=== PATIENT | female | born 1935 | race Caucasian/White ===

== ENCOUNTER 2016-11-16 11:58 | Outpatient (RCR) ==
[2015-04-03 12:15] VITALS: BMI 24.7
--- NOTE | 2016-11-16 16:29 | RS.OPPTDN ---
Subjective Date of Note: 11/16/16 Visit #: 7 Date of Evaluation: 08/13/16 Payer Source: MEDICARE Treatment Diagnosis: Right hip weakness Current Subjective/complaints:: Patient says she will be returning to water aerobics 4 times per week and has been performing HEP routinely. She says her MD says "just do what she can." Not to "overdo" anything. She questions whether she should have done more strengthening at first instead of ambulating. *Precautions: Right gluteus medius tendon repair 06/17/16 Pain Assessment - Pain Description Pain Location: Right hip Current Pain Intensity: Says only slight at the R glut Interventions - Exercise/Activities/Manual Therapy Exercises/Activities: Exercise with reassessment and education 45mins. QS, isometric hip add with ball, and isometric hip flexion with manual resistance. Alternate hip flexion with 3# each ankle, [id number]. SLR [id number] each side. Red theraband for short range right hip abd in hook-lying, 2s/10reps. In standing, hip abduction 2s/10reps each. Mini-squats, marching, and toe-ups, 10reps each. Short range hip extension, 2s/5reps each side. Step ups and lateral step ups on low stepper board, [id number] each. Omitted leg press as she says it really bothered her last session. High march side-stepping at handrail. Stationary bike x5mins(not included in total direct). Gait training [id number]. Works with cane in department, ambulating on flat planes, turns, and up and over low stepper board with MEDIA MANAGER. Treadmill @ 1.0-1.4 mph at level 2 incline x 7 mins frequently altering speed and time. Manual Therapy: NA HOME EXERCISE PROGRAM: supine hip abd/add, pillow squeeze (hip adduction isometrics), hip flexion in sitting. In standing, hip abd, marching, mini-squats , and toe-ups. Bridging. Alternate hip flexion. Standing short range hip extension. High step side-step marching at kitchen counter or in pool. - Objective Findings Observations,measurements,etc.: LE Functional Scale or 69%impairment compared to or 80% - Charges Total Direct Minutes: 45 Total Treatment Time: 45 Procedures billed for this date of service:: ex3 Assessment: Patient has made some progress with strengthening and improved functional tasks at home. She is steady with ambulation and uses RW in the community, but independent at home. She has been ascending stairs in home with one handrail with no difficulty and very little daily pain (more less she describes as soreness). Patient Education: Education of diagnosis, Body/Joint mechanics, Home Exercise Program, Home Safety, Activity Modification, Education of Plan of Care Patient demonstrates compliance with HEP?: Yes Short Term Goals Goal #1: Right hip abduction 4/5. Goal to be met by: 10/26/16 Progress towards Goal:: Met Goal #2: Trunk strength /5. Goal to be met by: 10/26/16 Progress towards Goal:: Met Goal #3: Patient amb with straight cane in her home for household distances. Goal to be met by: 10/26/16 Progress towards Goal:: Met Comments:: independently Sales Coordinator Goals Goal #1: Score on LE functional scale less than 19% impairment. Goal to be met by: 11/16/16 Progress towards goal: Progressing Goal #2: Patient able to perform all ADL's without limitation. Goal to be met by: 11/16/16 Progress towards goal: Progressing Goal #3: Patient is independent with SC in community. Goal to be met by: 11/16/16 Progress towards goal: Progressing Goal #4: Patient will return to pool fitness program without limitation. Goal to be met by: 11/16/16 Progress towards goal: Progressing Comments: Returning this week (4x per week) Plan PLAN OF CARE EXPIRES ON:: 11/16/16 ORDER # VISITS AND/OR THROUGH DATE: 11/16/16 PLAN: Plan for Discharge
--- NOTE | 2016-11-19 13:15 | RS.OPPTDC ---
Date of Discharge: 11/16/16 Date of Evaluation: 08/13/16 Number of Visits: 9 Treatment Diagnosis: Right hip weakness Current Complaints/Gains: Ms. Brady reports being please with her progress with therapy. She is performing HEP and progressing with exercises in pool therapy. She feels that the Laser treatment has help with decreasing her pain. She is motivated to continue with her HEP following D/C from therapy. Pain Assessment - Pain Description Pain Location: Right hip Current Pain Intensity: Says only slight at the R glut Functional Outcome Measure LE Functional Scale: 25 - G Codes & Severity Modifier G Codes & Modifier: Mobility, Walking & Moving Around. Eval - CL. Goal - CI. DC Status - CL Source of G Code score: LE Functional Scale Gait - Gait Pattern Gait Comments: Gait is now steady with SC and she has good gt speed. Interventions - Exercise/Activities/Manual Therapy Exercises/Activities: NA Manual Therapy: NA HOME EXERCISE PROGRAM: NA - Charges Total Direct Minutes: NA Total Treatment Time: NA Procedures billed for this date of service:: NA Assessment Assessment: Patient has made excellent progress with skilled PT intervention. She has met all STGs and LTGs are progressing and she is able to continue with her HEP to achieve further goals independently. Short Term Goals Goal #1: Right hip abduction 4/5. Goal to be met by: 10/26/16 Progress towards Goal:: Met Goal #2: Trunk strength 4/5. Goal to be met by: 10/26/16 Progress towards Goal:: Met Goal #3: Patient amb with straight cane in her home for household distances. Goal to be met by: 10/26/16 Progress towards Goal:: Met Intermediate Goals Goal #1: Score on LE functional scale less than 19% impairment. Goal to be met by: 11/16/16 Progress towards goal: Progressing Goal #2: Patient able to perform all ADL's without limitation. Goal to be met by: 11/16/16 Progress towards goal: Progressing Goal #3: Patient is independent with SC in community. Goal to be met by: 11/16/16 Progress towards goal: Progressing Goal #4: Patient will return to pool fitness program without limitation. Goal to be met by: 11/16/16 Progress towards goal: Progressing Plan Reason for Discharge:: Self-Discharge
== END 2016-12-08 ==
PROVIDERS: ATTEND Orthopaedic Surgery
DX: M25.551 Pain in right hip (principal)

== ENCOUNTER 2016-11-30 07:24 | Outpatient (CLI) ==
[2015-04-03 12:15] VITALS: BMI 24.7
--- NOTE | 2016-11-30 09:32 | MAMMO ---
EXAM: Digital bilateral diagnostic mammogram and left breast ultrasound HISTORY: Previous complex cyst in the left breast COMPARISON: Mammogram 05/15/2015 and 05/07/2015 with ultrasound of the left breast 02/12/2016 FINDINGS: MLO and CC views of the breasts were performed digitally and demonstrate scattered fibrog landular breast density (25 - 50%). There are persistent vascular calcifications. The peripheral ax illary, right breast well marginated nodule is unchanged from prior exam. The nodular densities in the left breast centrally are unchanged in size in appearance measuring 3.8 cm from the nipple poste riorly. This was present on prior evaluation, but is better marginated on today's exam. Same day ultrasound demonstrates an anechoic left breast cyst with a anechoic cyst at 12 o'clock michelle suring 0.6 x 0.9 x 0.7 cm. Additional anechoic cyst at 12 o'clock measures 0.4 x 0.5 x 0.5 cm. The third anechoic lesion measures 0.5 x 0.8 x 0.6 cm. IMPRESSION: Nodular densities in the left breast which correlate on the ultrasound with anechoic cy sts. RECOMMENDATION: Return to annual screening mammogram BIRADS category II: Benign findings
== END 2016-11-30 07:25 | disposition home or self-care (01) ==
LOC: RAD 07:24
PROVIDERS: ATTEND Family Medicine
DX: R92.2 Inconclusive mammogram (principal)

== ENCOUNTER 2017-06-15 14:01 | Outpatient (CLI) ==
[2015-04-03 12:15] VITALS: BMI 24.7
--- NOTE | 2017-06-15 14:33 | DI ---
EXAM: Single view of the pelvis and two views of bilateral hips. History: Bilateral hip pain. Comparison: Right hip radiograph 06/04/2015, pelvic radiograph 04/03/2015 Findings: No acute fracture or dislocation. Bilateral hip joint spaces are preserved. Postsurgica l changes of the lumbosacral spine again noted. Stable degenerative changes of the pubic symphysis. Impression: 1. No acute osseous abnormality. 2. No significant degenerative changes of the bilateral hip joints.
== END 2017-06-15 14:02 | disposition home or self-care (01) ==
LOC: RAD 14:01
PROVIDERS: ATTEND Family Medicine
DX: M25.552 Pain in left hip (principal); M25.551 Pain in right hip

== ENCOUNTER 2017-11-05 11:00 | Outpatient (RCR) ==
[2017-09-06 16:16] VITALS: BMI 25.9
--- NOTE | 2017-10-27 14:56 | RS.OPPTEV2 ---
Date of Note: 10/26/17 Visit #: 1 Date of Evaluation: 10/26/17 Payer Source: MEDICARE Date of Onset/Injury/Change in Status: 09/02/17 Surgery Performed?: Yes Procedure Performed: lumbar laminectomy with fusion Date of Procedure: 09/02/17 Treatment Diagnosis: lumbar spondylosis, after care following lumbar white History of Condition/Mechanism of Injury:: pt with diagnosis of lumbar spondylosis. pt underwent lumbar laminectomy with fusion. Prior Level of Function.....Patient was independent with: ADL's, Self Care, Ambulation/Mobility, Community Integration/Access Functional Limitations: ADL's, Reaching, Pushing, Pulling, Lifting, Carrying, Standing, Bending, Squatting, Ambulation, Community Access/Integration Current Subjective/complaints:: pt states she went back to MD for 6 week post op appointment and MD told her she no longer has restrictions for lifting or wearing brace. pt states she plans to return to going to pool for exercise in November. *Precautions: try to avoid bending, lifting and twisting to avoid strain to lumbar spine. Medical History Medical History: Hypertension, Arthritis Medical History Comments:: Back surgery May 2012, Apr 01 2015 torn hip tendon , May 2013 hip tendon repair, Spinal stenosis, DDD, [place], Lum, White, Osteoporosis , HTN, OA Surgical History: Lumbar Spine, Other Surgical History Comments:: lumbar white with lumbar fusion, R hip tendon repair 2016 Smoking Status: Never smoker Hx Home Medications: carbamazepine, clobetasol, Cranberry concentrate, enalapril , nitrofurantoin, pramipexole, premarin, prolia, simvastatin, sudafed, triamcinolone, vitamin D Patient's Goals: to be able to walk without rwx or cane. Pain Assessment - Pain Description Pain Location: lumbar spine Pain Description: stinging Current Pain Intensity: 0-1 Functional Outcome Measure Oswestry LBP: 16 (32%) - G Codes & Severity Modifier G Codes & Modifier: mobility current CJ. mobility goal CI Source of G Code score: oswestry scale as well as functional assessment Observation - Observation Inspection: min non pitting edema B LE Posture: Forward Head, Rounded Shoulders, Increased Thoracic Kyphosis Handedness: Right Gait - Gait Pattern General Gait Pattern Observation: Crouched Gait Gait Comments: pt amb with flexed posture with 3 wheeled rwx independently with no LOB General Range of Motion: WFL's Muscle Strength: BUE shld flex 4-/5, elbow flex/ext 4/5, BLE hip flex 4-/5, knee 4/5, ankle DF/PF 4/5 - ROM Lumbar Flexion: Hand reach to patellae Sidebending to Left: Reach to Mid-thigh Sidebending to Right: Reach to Mid-thigh Lumbar Spine ROM Limitations: Soft Tissue Tightness Palpation Palpation Findings: Muscle Guarding (lumbar paraspinals ) Sensation - Sensation Right Upper Extremity: Intact/Normal Left Upper Extremity: Intact/Normal Right Lower Extremity: Impaired Left Lower Extremity: Impaired (n/t B toes) Balance - Sitting Balance Static Sitting Balance: Good Dynamic Sitting Balance: Good - Standing Balance Static Standing Balance: Good Dynamic Standing Balance: Fair - Comments Balance Assessment Comments: balance master limits of stability score 26% Interventions - Exercise/Activities/Manual Therapy Exercises/Activities: NA Manual Therapy: NA HOME EXERCISE PROGRAM: pt given written HEP including hamstring stretch, isometric hip flex, - Charges Timed Code Treatment Minutes: 58 Total Treatment Time: 65 Procedures billed for this date of service:: eval med Assessment Assessment: pt presents with decreased strength, balance as well as pain in lumbar spine s/p lumbar laminectomy with fusion . Feel pt would benefit from skilled PT for therex for LE strengthening, core strengthening, balance activities and gait training to progress from rwx to cane. Patient Education: Home Exercise Program, Education of Plan of Care Rehab Potential: Good Short Term Goals Goal #1: pt with improved strength BLE 4 to 4+/5 Goal to be met by: 11/09/17 Goal #2: pt amb in dept with cane with no loss of balance with supervision Goal to be met by: 11/09/17 Goal #3: pt report no pain with activity Goal to be met by: 11/09/17 Toeing Stockings Goals Goal #1: Oswestry score improved to <25% impaired Goal to be met by: 11/25/17 Goal #2: improved balance as noted by balance master limits of stability improved Goal to be met by: 11/25/17 Goal #3: pt amb independently in community with cane Goal to be met by: 11/25/17 Goal #4: Patient will return to pool fitness program without limitation. Goal to be met by: 11/25/17 Plan - Treatment to be Provided Procedures: Therapeutic Exercises, Therapeutic Activity, Gait Training, Manual Therapy, Patient Education Modalities: Electrical Stimulation, Cryotherapy, Hot Packs - Treatment Plan Frequency: 2 X week Duration: 4 weeks ORDER # VISITS AND/OR THROUGH DATE: 11/25/17 - Treatment Code (1) Lumbar spondylosis Code(s): M47.816 - SPONDYLOSIS W/O MYELOPATHY OR RADICULOPATHY, LUMBAR REGION (2) Other specified postprocedural states Code(s): Z98.89 - OTHER SPECIFIED POSTPROCEDURAL STATES * DO NOT USE * (3) Gait abnormality Code(s): R26.9 - UNSPECIFIED ABNORMALITIES OF GAIT AND MOBILITY
--- NOTE | 2017-10-28 13:34 | RS.OPPTDN ---
Subjective Date of Note: 10/28/17 Visit #: 2 Date of Evaluation: 10/26/17 Payer Source: MEDICARE Treatment Diagnosis: lumbar spondylosis, after care following lumbar guthrie Current Subjective/complaints:: Patient reports she is working on HEP as instructed. *Precautions: try to avoid bending, lifting and twisting to avoid strain to lumbar spine. Pain Assessment - Pain Description Pain Location: lowback Current Pain Intensity: mild Interventions - Exercise/Activities/Manual Therapy Exercises/Activities: Assisted stretching of hamstrings, SKTC, and lower trunk rotation. Isometric hip add with ball, isometric hip flexion. Alt hip flexion with 1 1/2# to each ankle. Red theraband for hip abd in hook-lying. Wand for overhead shoulder flexion with ball squeeze beetween knees for core strengthening. In standing at handrail, forward and side lunges. Active trunk extension. Als hip extension. Wall slides with large therapy ball. Scapular retraction. Total minutes of Exercise: 40mins Manual Therapy: NA HOME EXERCISE PROGRAM: pt given written HEP including hamstring stretch, isometric hip flex, - Charges Timed Code Treatment Minutes: 40mins Total Treatment Time: 45mins Procedures billed for this date of service:: EX3 Assessment: Patient motivated to progress with exercise to improve her functional activity level. Patient Education: Education of diagnosis, Body/Joint mechanics, Home Exercise Program, Home Safety, Activity Modification Patient demonstrates compliance with HEP?: Yes Short Term Goals Goal #1: pt with improved strength BLE 4 to 4+/5 Goal to be met by: 11/09/17 Goal #2: pt amb in dept with cane with no loss of balance with supervision Goal to be met by: 11/09/17 Goal #3: pt report no pain with activity Goal to be met by: 11/09/17 Decorating Equipment Setter Goals Goal #1: Oswestry score improved to <25% impaired Goal to be met by: 11/25/17 Goal #2: improved balance as noted by balance master limits of stability improved Goal to be met by: 11/25/17 Goal #3: pt amb independently in community with cane Goal to be met by: 11/25/17 Goal #4: Patient will return to pool fitness program without limitation. Goal to be met by: 11/25/17 Plan PLAN OF CARE EXPIRES ON:: 11/25/17 ORDER # VISITS AND/OR THROUGH DATE: 11/25/17 PLAN: Progress exercise to increase patients functional activity level.
--- NOTE | 2017-11-03 13:45 | RS.OPPTDN ---
Subjective Date of Note: 11/03/17 Visit #: 3 Date of Evaluation: 10/26/17 Payer Source: MEDICARE Treatment Diagnosis: lumbar spondylosis, after care following lumbar guth[place] Current Subjective/complaints:: Patient reports she is working on HEP. States she was up more over the holidays. She reports she noticed increased soreness but feels like she was able to do light activities fairly well. *Precautions: try to avoid bending, lifting and twisting to avoid strain to lumbar spine. Pain Assessment - Pain Description Pain Location: Lowback Pain Description: Aching Current Pain Intensity: Mild Interventions - Exercise/Activities/Manual Therapy Exercises/Activities: Assisted stretching of bilateral hamstrings, SKTC, and LTR. Isometric hip add with ball, isometric hip flexion. Alt hip flexion increased to 3# to each ankle. Overhead shoulder flexion with 3# wand and isometric hip flexion for core strengthening. Yellow theraband for hip abd in hook-lying, 2s/10reps. Red theraband for ankle df, 2s/10reps. SLR. In standing at handrail, mini-squats, toe-ups, and marching. Alt hip abd and alt hip extension. Sit to stand with and without using arms to push-up. Isometric ankle inversion with ball. Worked on ambulation with cane in department with min to CGA of 1. Total minutes of Exercise: 42mins Manual Therapy: NA HOME EXERCISE PROGRAM: pt given written HEP including hamstring stretch, isometric hip flex, - Charges Timed Code Treatment Minutes: 42mins Total Treatment Time: 45mins Procedures billed for this date of service:: EX3 Assessment: Patient progressing with strengthening and reports improvement in functional activity at home. Patient Education: Body/Joint mechanics, Home Exercise Program, Home Safety, Activity Modification Patient demonstrates compliance with HEP?: Yes Short Term Goals Goal #1: pt with improved strength BLE 4 to 4+/5 Goal to be met by: 11/09/17 Progress towards Goal:: Progressing Goal #2: pt amb in dept with cane with no loss of balance with supervision Goal to be met by: 11/09/17 Progress towards Goal:: Progressing Goal #3: pt report no pain with activity Goal to be met by: 11/09/17 Senior Living Goals Goal #1: Oswestry score improved to <25% impaired Goal to be met by: 11/25/17 Goal #2: improved balance as noted by balance master limits of stability improved Goal to be met by: 11/25/17 Goal #3: pt amb independently in community with cane Goal to be met by: 11/25/17 Goal #4: Patient will return to pool fitness program without limitation. Goal to be met by: 11/25/17 Plan PLAN OF CARE EXPIRES ON:: 11/25/17 ORDER # VISITS AND/OR THROUGH DATE: 11/25/17 PLAN: Progress strengthening and balance exercise to increase safe, functional activity level.
--- NOTE | 2017-11-05 12:18 | RS.OPPTDN ---
Subjective Date of Note: 11/05/17 Visit #: 4 Date of Evaluation: 10/26/17 Payer Source: MEDICARE Treatment Diagnosis: lumbar spondylosis, after care following lumbar guthrie Current Subjective/complaints:: Patient reports she has noticed weakness in her hips with abduction exercises. States she is ready to increase strengthening activities, including bike and treadmill today. Patient states she is planning to go back to pool for modified exercise class next week. *Precautions: try to avoid bending, lifting and twisting to avoid strain to lumbar spine. Pain Assessment - Pain Description Pain Location: lowback Pain Description: Aching Current Pain Intensity: mild with some activities Interventions - Exercise/Activities/Manual Therapy Exercises/Activities: Assisted stretching of bilateral hamstrings, SKTC, and LTR. Isometric hip add and isometric bilateral ankle inversion with ball. Isometric hip flexion. Alt hip flexion increased to 4# to each ankle. SAQ 4#. Increased to red theraband for hip abd in hook-lying, 2s/10reps. Red theraband for ankle df, 2s/10reps. SLR. Began side-lying clams and assisted hip abduction. Patient assisted onto stationary bike, 5mins forward revolutions. In standing at handrail, toe-ups and marching. Unilateral standing for balance while doing hip flex, abd, and ext. Alt hip abd and alt hip extension. Mini- squats with ball between knees. Total minutes of Exercise: 45mins Manual Therapy: NA HOME EXERCISE PROGRAM: pt given written HEP including hamstring stretch, isometric hip flex. Standing toe-ups, marching, hip abd, hip ext, and mini- squats with ball. - Charges Timed Code Treatment Minutes: 45mins Total Treatment Time: 50mins Procedures billed for this date of service:: EX3 Assessment: Patient progressing with strengthening and appears to be consistently working on HEP. Patient Education: Home Exercise Program, Home Safety, Activity Modification Patient demonstrates compliance with HEP?: Yes Short Term Goals Goal #1: pt with improved strength BLE 4 to 4+/5 Goal to be met by: 11/09/17 Progress towards Goal:: Progressing Goal #2: pt amb in dept with cane with no loss of balance with supervision Goal to be met by: 11/09/17 Progress towards Goal:: Progressing Goal #3: pt report no pain with activity Goal to be met by: 11/09/17 Coal Pulverizer Operator Goals Goal #1: Oswestry score improved to <25% impaired Goal to be met by: 11/25/17 Goal #2: improved balance as noted by balance master limits of stability improved Goal to be met by: 11/25/17 Goal #3: pt amb independently in community with cane Goal to be met by: 11/25/17 Goal #4: Patient will return to pool fitness program without limitation. Goal to be met by: 11/25/17 Plan PLAN OF CARE EXPIRES ON:: 11/25/17 ORDER # VISITS AND/OR THROUGH DATE: 11/25/17 PLAN: Progress strengthening and balance exercise to increase patients safety and functional independence.
== END 2017-11-07 ==
PROVIDERS: ATTEND Neurological Surgery
DX: Z47.89 Encounter for other orthopedic aftercare (principal); M47.816 Spondylosis without myelopathy or radiculopathy, lumbar region

== ENCOUNTER 2017-11-25 11:00 | Outpatient (RCR) | payer OTHER ==
[2017-09-06 16:16] VITALS: BMI 25.9
--- NOTE | 2017-11-09 14:50 | RS.OPPTDN ---
Subjective Date of Note: 11/09/17 Visit #: 5 Date of Evaluation: 10/26/17 Payer Source: MEDICARE Treatment Diagnosis: lumbar spondylosis, after care following lumbar guthrie Current Subjective/complaints:: Patient reports she is feeling stronger and she is returning to pool exercise tomorrow. Reports she will work on a modified version of the exercises. *Precautions: try to avoid bending, lifting and twisting to avoid strain to lumbar spine. Pain Assessment - Pain Description Pain Location: lowback Pain Description: Dull Current Pain Intensity: mild Interventions - Exercise/Activities/Manual Therapy Exercises/Activities: GAIT TRAINING: Worked on ambulation with straight cane in left hand. Gait belt and FISH HATCHERY ASSISTANT. Verbal cues for sequence, steps width, safety with turns, and swinging right UE for balance. EXERCISE: Assisted stretching of bilateral hamstrings, SKTC, and LTR. Isometric hip add and isometric bilateral ankle inversion with ball. Isometric hip flexion. Alt hip flexion 4# to each ankle. SAQ 4#. Increased to green theraband for hip abd and add in hook- lying, 2s/10reps each. Red theraband for ankle df, 2s/10reps. Red theraband for ham curls, 2s/10reps. SLR. NEURO: Balance Station Tender for Limits of Stability, Random, and Static Weight-Shifting. In standing at handrail, toe-ups, marching , and mini-squats. Unilateral standing for balance while doing hip flex, abd, and ext. Alt hip abd and alt hip extension. Heel-toe walking and high side- stepping. Ended with 7mins on stationary bike (not in direct time). Total minutes of Exercise: Gait Training 8mins, EX 30mins, NERUO 15mins Manual Therapy: NA HOME EXERCISE PROGRAM: pt given written HEP including hamstring stretch, isometric hip flex. Standing toe-ups, marching, hip abd, hip ext, and mini- squats with ball. - Objective Findings Observations,measurements,etc.: Improvement in gait with cane. Demos narrow foot width and ER of the left LE. - Charges Timed Code Treatment Minutes: 53mins Total Treatment Time: 60mins Procedures billed for this date of service:: GT, NEURO, EX2 Assessment: Patient progressing with strengthening and balance activity. Patient Education: Home Exercise Program, Home Safety, Activity Modification Patient demonstrates compliance with HEP?: Yes Short Term Goals Goal #1: pt with improved strength BLE 4 to 4+/5 Goal to be met by: 11/09/17 Progress towards Goal:: Progressing Goal #2: pt amb in dept with cane with no loss of balance with supervision Goal to be met by: 11/09/17 Progress towards Goal:: Progressing Goal #3: pt report no pain with activity Goal to be met by: 11/09/17 Progress towards Goal:: Progressing Larry Operator Goals Goal #1: Oswestry score improved to <25% impaired Goal to be met by: 11/25/17 Goal #2: improved balance as noted by balance master limits of stability improved Goal to be met by: 11/25/17 Progress towards goal: Progressing Goal #3: pt amb independently in community with cane Goal to be met by: 11/25/17 Goal #4: Patient will return to pool fitness program without limitation. Goal to be met by: 11/25/17 Progress towards goal: Progressing Plan PLAN OF CARE EXPIRES ON:: 11/25/17 ORDER # VISITS AND/OR THROUGH DATE: 11/25/17 PLAN: Progress balance and strengthening to increase safety and independence with gait with cane.
--- NOTE | 2017-11-11 12:11 | RS.OPPTDN ---
Subjective Date of Note: 11/11/17 Visit #: 6 Date of Evaluation: 10/26/17 Payer Source: MEDICARE Treatment Diagnosis: lumbar spondylosis, after care following lumbar guthrie Current Subjective/complaints:: Patient reports she was unable to go to pool exercise this week, but will start tomorrow. She reports she is concerned about LE strength to go up and down stairs. *Precautions: try to avoid bending, lifting and twisting to avoid strain to lumbar spine. Interventions - Exercise/Activities/Manual Therapy Exercises/Activities: EXERCISE: Assisted stretching of bilateral hamstrings, SKTC, piriformis, and LTR. Isometric hip add and isometric bilateral ankle inversion with ball. Isometric hip flexion. Alt hip flexion 4# to each ankle. SAQ 4#. 3# wand for overhead sh flexion with ball between knees for core. Cross over modified abdominal crunch with 3# wand and 4# weights to ankles. Green theraband for hip abd and add in hook-lying, 2s/10reps each. Green theraband for ham curls, 2s/10reps. Side-lying clams with 4# and assisted hip abduction. Sitting green theraband for scap retraction. NEURO: Balance [place] for Limits of Stability, Random, Maze, and Static Weight-Shifting. In standing at handrail , toe-ups, marching, and mini-squats. Unilateral standing for balance while doing hip flex, abd, and ext. Alt hip abd and alt hip extension. High side- stepping. Steps ups at 4" stepper board, multiple reps. Treadmill 2 mins with 5 % incline and 2 mins at 2.0mph. Ended with 7mins on stationary bike (not in direct time). Total minutes of Exercise: EX 30mins, NEURO 25mins Manual Therapy: NA HOME EXERCISE PROGRAM: pt given written HEP including hamstring stretch, isometric hip flex. Standing toe-ups, marching, hip abd, hip ext, and mini- squats with ball. - Charges Timed Code Treatment Minutes: 55mins Total Treatment Time: 60mins Procedures billed for this date of service:: EX2, NEURO2 Assessment: Patient progressing with balance activity and strengthening. Patient Education: Home Exercise Program, Home Safety, Activity Modification Comments: Extensive discussion on safety with daily activities and progression of gait and strengthening exercise. Patient demonstrates compliance with HEP?: Yes Short Term Goals Goal #1: pt with improved strength BLE 4 to 4+/5 Goal to be met by: 11/09/17 Progress towards Goal:: Progressing Goal #2: pt amb in dept with cane with no loss of balance with supervision Goal to be met by: 11/09/17 Progress towards Goal:: Progressing Goal #3: pt report no pain with activity Goal to be met by: 11/09/17 Progress towards Goal:: Progressing Bake Room Worker Goals Goal #1: Oswestry score improved to <25% impaired Goal to be met by: 11/25/17 Goal #2: improved balance as noted by balance master limits of stability improved Goal to be met by: 11/25/17 Progress towards goal: Progressing Goal #3: pt amb independently in community with cane Goal to be met by: 11/25/17 Goal #4: Patient will return to pool fitness program without limitation. Goal to be met by: 11/25/17 Progress towards goal: Progressing Plan PLAN OF CARE EXPIRES ON:: 11/25/17 ORDER # VISITS AND/OR THROUGH DATE: 11/25/17 PLAN: Progress strengthening and balance activity to increase safe and indepenent ambulation.
--- NOTE | 2017-11-17 16:39 | RS.OPPTDN ---
Subjective Date of Note: 11/17/17 Visit #: 7 Date of Evaluation: 10/26/17 Payer Source: MEDICARE Treatment Diagnosis: lumbar spondylosis, after care following lumbar guthrie Current Subjective/complaints:: Patient offers no c/o's. She says she is doing well with all therex here and at home, stating she just came from pool exercise class. *Precautions: try to avoid bending, lifting and twisting to avoid strain to lumbar spine. Balance System Training - Level 1 Postural Stability/Symmetry #1 Training Mode: Weight Shift Training Vision: Eyes Open Task: None Platform Stability Level (1-12): 1 Time: 1 1/2 mins Reps: scored 50% first attempt, then improved to 79% - Level 2 Dynamic Weight Shifting #1 Training Mode: Limits of Stability Skill Level (1-3): 1 Platform Stability Level (1-12): 1 Time: 1 1/2 mins Reps: 2 Improving range from 48 to 68% - Level 3 Reactive Postural Control #1 Activity: MAZE CONTROL Platform Stability Level (1-12): 1 Time: up to 1 mins Reps: 3 Averages 82% Interventions - Exercise/Activities/Manual Therapy Exercises/Activities: EXERCISE: Assisted stretching of bilateral hamstrings, SKTC, piriformis, and LTR. Isometric hip add and isometric bilateral ankle inversion with ball. Isometric hip flexion. Alt hip flexion 4# to each ankle. SAQ 4#. 3# wand for overhead sh flexion with ball between knees for core. Cross over modified abdominal crunch with 3# wand and 4# weights to ankles. Green theraband for hip abd and add in hook-lying, 2s/10reps each. Green theraband for ham curls, 2s/10reps. Side-lying clams with 4# and assisted hip abduction. Sitting green theraband for scap retraction. NEURO: Balance Advertising Assistant Manager for Limits of Stability, Random, Maze, and Static Weight-Shifting. In standing at handrail , toe-ups, marching, and mini-squats. Unilateral standing for balance while doing hip flex, abd, and ext. Alt hip abd and alt hip extension. Treadmill 3 mins with 5% incline. Ended with 8mins on stationary bike (not in direct time). Total minutes of Exercise: 60 Manual Therapy: NA HOME EXERCISE PROGRAM: pt given written HEP including hamstring stretch, isometric hip flex. Standing toe-ups, marching, hip abd, hip ext, and mini- squats with ball. - Charges Timed Code Treatment Minutes: 60 Total Treatment Time: 60 Procedures billed for this date of service:: ex2, neuro2 Assessment: Patient improving with felice progressing core and LE therex while being able to consistently attend pool classes. She amb steadily and demo improved scores on Balance Advertising Assistant Manager including static weight shift program and Limits of stability. Patient Education: Education of diagnosis, Home Exercise Program Patient demonstrates compliance with HEP?: Yes Short Term Goals Goal #1: pt with improved strength BLE 4 to 4+/5 Goal to be met by: 11/09/17 Progress towards Goal:: Progressing Goal #2: pt amb in dept with cane with no loss of balance with supervision Goal to be met by: 11/09/17 Progress towards Goal:: Progressing Goal #3: pt report no pain with activity Goal to be met by: 11/09/17 Progress towards Goal:: Progressing Alf Goals Goal #1: Oswestry score improved to <25% impaired Goal to be met by: 11/25/17 Goal #2: improved balance as noted by balance master limits of stability improved Goal to be met by: 11/25/17 Progress towards goal: Progressing Goal #3: pt amb independently in community with cane Goal to be met by: 11/25/17 Goal #4: Patient will return to pool fitness program without limitation. Goal to be met by: 11/25/17 Progress towards goal: Progressing Plan PLAN OF CARE EXPIRES ON:: 11/25/17 ORDER # VISITS AND/OR THROUGH DATE: 11/25/17 PLAN: Patient to continue to utilize balance systems trainer to improve bal scores by 10 %
--- NOTE | 2017-11-25 13:41 | RS.OPPTDN ---
Subjective Date of Note: 11/25/17 Visit #: 8 Date of Evaluation: 10/26/17 Payer Source: MEDICARE Treatment Diagnosis: lumbar spondylosis, after care following lumbar guthrie Current Subjective/complaints:: Patient reports she has progressed well and will continue HEP. She would like to continue to increase strength, stamina, and progress to cane. *Precautions: try to avoid bending, lifting and twisting to avoid strain to lumbar spine. Pain Assessment - Pain Description Pain Description: 0 Interventions - Exercise/Activities/Manual Therapy Exercises/Activities: EXERCISE: Assisted stretching of bilateral hamstrings, SKTC, piriformis, and LTR. Isometric hip add. Isometric hip flexion. Alt hip flexion 4# to each ankle. SAQ 4#. 3# wand for overhead sh flexion with ball between knees for core. Green theraband for hip abd and add in hook-lying, 2s/ 10reps each. Green theraband for ham curls, 2s/10reps. Side-lying clams. SLR. NEURO: Balance Telecommunications Field Technician for Limits of Stability, Random, Maze, and Static Weight- Shifting. In standing at handrail, toe-ups, marching, and mini-squats. Unilateral standing for balance while doing hip flex, abd, and ext. Alt hip abd and alt hip extension. Step-ups and lateral step-ups at 6" stepper board. Practiced walking with standard cane in left hand, verbal cues for foot placement and to avoid LE cross-over on turns. Treadmill 5 mins with good gait pattern. Ended with 5mins on stationary bike (not in direct time). Total minutes of Exercise: EX2, NEURO Manual Therapy: NA HOME EXERCISE PROGRAM: pt given written HEP including hamstring stretch, isometric hip flex. Standing toe-ups, marching, hip abd, hip ext, and mini- squats with ball. - Objective Findings Observations,measurements,etc.: Oswestry improved to 7 or 14% (was 16 or 32% on Evaluation) - Charges Timed Code Treatment Minutes: 50mins Total Treatment Time: 55mins Procedures billed for this date of service:: EX2, NEURO Assessment: Patient progressed well and benefitted from treatment. She met 5 or 7 goals and is independent with HEP. She met FOM goal. Patient Education: Home Exercise Program, Home Safety, Activity Modification, Education of Plan of Care Comments: Reviewed and finalized HEP. Patient demonstrates compliance with HEP?: Yes Short Term Goals Goal #1: pt with improved strength BLE 4 to 4+/5 Goal to be met by: 11/09/17 Progress towards Goal:: Met Goal #2: pt amb in dept with cane with no loss of balance with supervision Goal to be met by: 11/09/17 Progress towards Goal:: Met Goal #3: pt report no pain with activity Goal to be met by: 11/09/17 Progress towards Goal:: Met Group Home Goals Goal #1: Oswestry score improved to <25% impaired Goal to be met by: 11/25/17 Progress towards goal: Met Goal #2: improved balance as noted by balance master limits of stability improved Goal to be met by: 11/25/17 Progress towards goal: Progressing Goal #3: pt amb independently in community with cane Goal to be met by: 11/25/17 Progress towards goal: Progressing Goal #4: Patient will return to pool fitness program without limitation. Goal to be met by: 11/25/17 Progress towards goal: Met Plan PLAN OF CARE EXPIRES ON:: 11/25/17 ORDER # VISITS AND/OR THROUGH DATE: 11/25/17 PLAN: Discharge with HEP.
--- NOTE | 2017-11-29 14:39 | RS.OPPTDC ---
Date of Discharge: 11/25/17 Date of Evaluation: 10/26/17 Number of Visits: 8 Treatment Diagnosis: lumbar spondylosis, after care following lumbar guthrie Current Level of Function: pt oswestry low back pain score 7 or 14% which is improved from eval 32%. pt is independent with HEP and has demonstrated increased strength. Current Complaints/Gains: pt states she feels she has improved with PT. She states she has been able to return to pool therapy as well as has been practicing HEP on her own. Functional Outcome Measure Oswestry LBP: 7 (14%) - G Codes & Severity Modifier G Codes & Modifier: mobility goal CI. mobility DC CI Source of G Code score: oswestry low back pain scale Observation - Observation Posture: Forward Head, Rounded Shoulders Interventions - Exercise/Activities/Manual Therapy Exercises/Activities: n/a Manual Therapy: NA HOME EXERCISE PROGRAM: pt given written HEP including hamstring stretch, isometric hip flex. Standing toe-ups, marching, hip abd, hip ext, and mini- squats with ball. - Charges Timed Code Treatment Minutes: n/a Total Treatment Time: n/a Procedures billed for this date of service:: n/a Assessment Assessment: pt has met all goals except goal for improvement on balance master. pt's balance has improved and has progressed from amb with rwx to amb with cane. pt has also demonstrated improvement in strength. Patient Education: Education of diagnosis, Home Exercise Program, Education of Plan of Care Rehab Potential: Good Short Term Goals Goal #1: pt with improved strength BLE 4 to 4+/5 Goal to be met by: 11/09/17 Progress towards Goal:: Met Goal #2: pt amb in dept with cane with no loss of balance with supervision Goal to be met by: 11/09/17 Progress towards Goal:: Met Goal #3: pt report no pain with activity Goal to be met by: 11/09/17 Progress towards Goal:: Met National Insurance Officer Goals Goal #1: Oswestry score improved to <25% impaired Goal to be met by: 11/25/17 Progress towards goal: Met Goal #2: improved balance as noted by balance master limits of stability improved Goal to be met by: 11/25/17 Progress towards goal: Progressing Goal #3: pt amb independently in community with cane Goal to be met by: 11/25/17 Progress towards goal: Met Goal #4: Patient will return to pool fitness program without limitation. Goal to be met by: 11/25/17 Progress towards goal: Met Plan Comments: Most goals met.
== END 2017-12-08 ==
PROVIDERS: ATTEND Neurological Surgery
DX: M47.816 Spondylosis without myelopathy or radiculopathy, lumbar region (principal); Z09 Encounter for follow-up examination after completed treatment for conditions other than malignant neoplasm

== ENCOUNTER 2018-01-06 12:54 | Outpatient (CLI) | payer OTHER ==
[2017-09-06 16:16] VITALS: BMI 25.9
--- NOTE | 2018-01-07 08:21 | MAMMO ---
EXAM: Digital screening mammogram with tomosynthesis and CAD HISTORY: Screening mammogram. COMPARISON: Mammogram 11/30/2016 FINDINGS: Breasts demonstrate scattered fibroglandular densities. There are bilateral benign vascula r calcifications. Right intramammary lymph node is unchanged. The nodular densities in the left kings ast from prior examination have significantly improved / near resolved. There is no new or suspicious calcification or mass. IMPRESSION: No new/suspicious calcification or mass. Recommendations: Annual screening mammogram. BIRADS category II: Benign findings
== END 2018-01-06 12:55 | disposition home or self-care (01) ==
LOC: RAD 12:54
PROVIDERS: ATTEND Family Medicine
DX: Z12.31 Encounter for screening mammogram for malignant neoplasm of breast (principal)
CPT/HCPCS: 77067

== ENCOUNTER 2018-05-02 07:24 | Outpatient (CLI) | payer OTHER ==
[2017-09-06 16:16] VITALS: BMI 25.9
--- NOTE | 2018-05-02 08:36 | US ---
EXAM: Ultrasound abdomen limited right upper quadrant HISTORY: Nausea COMPARISON: CT 06/05/2013 TECHNIQUE: Limited ultrasound abdomen right upper quadrant was performed FINDINGS: Visualized portion pancreas appears normal. Portions of the pancreas obscured secondary t o bowel gas shadowing. Liver normal in size and echogenicity. There is a cyst in the right lobe of liver measuring 1.1 cm. Additional indeterminate hypodensity right lobe of liver measuring 2.4 cm, v tomasa poorly evaluated, though may have posterior through transmission to suggest a cyst and correlate with a cyst seen on prior CT. No shadowing gallstones. No gallbladder wall thickening or pericholec ystic fluid. No biliary duct dilation with common bile duct measuring 0.4 cm. IMPRESSION: 1. No cholelithiasis. No gallbladder wall thickening. 2. Liver cyst and additional indeterminate liver lesion, possibly a cyst, though very poorly evaluat ed. Recommend follow-up ultrasound in 3 months or further characterization with CT liver protocol.
== END 2018-05-02 07:25 | disposition home or self-care (01) ==
LOC: RAD 07:24
PROVIDERS: ATTEND Family Medicine
DX: R11.0 Nausea (principal)

== ENCOUNTER 2018-05-06 07:57 | Outpatient (CLI) ==
[2017-09-06 16:16] VITALS: BMI 25.9
--- NOTE | 2018-05-06 10:39 | NM ---
EXAM: Hepatobiliary scan HISTORY: Pain and cramping. COMPARISON: None of this type. PROCEDURE: The patient was injected with 5.2 mCi of 99mTc mebrofenin intravenously. Images of the ab domen were obtained at 5 min intervals for 30 minutes. Additional images were obtained at 45 minutes and 1 hour. The patient was then injected with 1.4 mcg of CCK by slow infusion while images of the g allbladder were obtained to assess gallbladder contraction. FINDINGS: Sequential images demonstrate normal uptake of tracer into the liver. Activity is seen in the intrahepatic biliary ducts at about 15 minutes. The activity appears in the gallbladder at about 25 minutes. Subsequent images demonstrate increasing activity in the gallbladder. Activity first a ppears in the small bowel at 45 minutes. The gallbladder ejection fraction is 16% . IMPRESSION: 1.Normal hepatobiliary scan. 2.The gallbladder ejection fraction is 16% (low)
== END 2018-05-06 07:58 | disposition home or self-care (01) ==
LOC: RAD 07:57
PROVIDERS: ATTEND Family Medicine
DX: R10.9 Unspecified abdominal pain (principal); R11.0 Nausea

== ENCOUNTER 2018-05-18 08:43 | Outpatient (CLI) | payer OTHER ==
[2017-09-06 16:16] VITALS: BMI 25.9
--- NOTE | 2018-05-18 10:56 | CT ---
EXAM: CT abdomen with and without contrast. CT pelvis with and without contrast. HISTORY: Abdominal cramping. Abnormal liver ultrasound. COMPARISON: 05/02/2018. Abdominal CT 06/05/2013. TECHNIQUE: Multiple axial images of the abdomen and pelvis were obtained prior to and following intr avenous administration of 100 mL of Omnipaque 350, low osmolar. Images reformatted in the sagittal a nd coronal plane. FINDINGS: No acute abnormality identified in the lung base. Posterior lumbar fusion and laminectomy changes seen from L4-S1. Multiple nonenhancing low density lesions are present in the liver the largest measuring 2.5 x 2 cm i n the posterior right lobe on series 4 image 15. The gallbladder, pancreas, spleen, adrenal glands a re unremarkable. A 4 x 3.7 x 3.4 cm fluid density inferior left renal cortical lesion is present. T he kidneys are otherwise normal. The bowel is normal in course and caliber without evidence for obstruction or inflammatory process. The appendix is normal. Uterus is small but normal contour. Dilated pelvic pain seen bilaterally, g reater on the left. There is a filling defect within the right adnexal vein best seen on series 13 i mages 48-50 although of contrast does pass peripherally around this. Atherosclerotic calcifications present. No free fluid, free air or lymphadenopathy identified. Smal l fat-containing umbilical hernia is present. IMPRESSION: 1. Hepatic and left renal cysts. 2. 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 Nonocclusive thrombus within a right adnexal vein.
== END 2018-05-18 08:44 | disposition home or self-care (01) ==
LOC: RAD 08:43
PROVIDERS: ATTEND Nurse Practitioner Family
DX: R10.9 Unspecified abdominal pain (principal); R93.2 Abnormal findings on diagnostic imaging of liver and biliary tract

== ENCOUNTER 2018-12-08 13:00 | Outpatient (RCR) ==
[2017-09-06 16:16] VITALS: BMI 25.9
--- NOTE | 2018-11-28 13:23 | RS.OPPTEV2 ---
Date of Note: 11/25/18 Visit #: 1 Number of visits approved by Insurance: n/a Date of Evaluation: 11/25/18 Payer Source: MEDICARE Surgery Performed?: No Treatment Diagnosis: pain in R hip History of Condition/Mechanism of Injury:: pt reports she has not been able to walk without walker since hip fx in 2016 reports she continues to have L hip pain. Prior Level of Function.....Patient was independent with: ADL's, Self Care, Ambulation/Mobility, Community Integration/Access Level of Function: pt lives alone, is independent with ADL's as well as driving and amb with rolling walker. Functional Limitations: ADL's, Lifting, Carrying, Standing, Bending, Squatting, Ambulation, Community Access/Integration Current Subjective/complaints:: pt reports that she continues to have pain in L hip. Reports that she does not feel secure enough to try amb with cane. pt states she goes to pool exercise 3 x a week. Treatment Side (optional): Left *Precautions: n/a Medical History Medical History: Hypertension, Arthritis Medical History Comments:: Spinal stenosis, DDD, [facility] [place], Osteoporosis, Surgical History: Lumbar Spine, Cholecystectomy, Other Surgical History Comments:: lumbar g[place] with lumbar fusion, R hip tendon repair 2016, Smoking Status: Never smoker Hx Home Medications: carbamazepine, simvastatin, enalapril, nitrofurantoin, pramipexole Di HCL prolia, triamcinolone, vitamin D, calcium, multivitamin Patient's Goals: be able to walk without rwx Pain Assessment - Pain Description Pain Location: R hip Pain Description: Aching Current Pain Intensity: 4 Worst Pain Intensity: 5 Functional Outcome Measure LE Functional Scale: 36 - G Codes & Severity Modifier G Codes & Modifier: n/a Source of G Code score: n/a Observation - Observation Posture: Forward Head, Rounded Shoulders, Increased Thoracic Kyphosis Handedness: Right Gait - Gait Pattern General Gait Pattern Observation: Antalgic Gait Gait Comments: pt amb with flexed posture, antalgic gait, decreased step length. General Range of Motion: BLE WFL's Muscle Strength: RLE hip flex 4-/5, knee flex/ext 4/5, ankle Df/PF 4/5. LLE hip flex 4+/5, knee flex/ext 4+/5, ankle Df/PF 4+5 Palpation Palpation Findings: Tenderness (low back and hip) Sensation - Sensation Right Upper Extremity: Intact/Normal Left Upper Extremity: Intact/Normal Right Lower Extremity: Intact/Normal Left Lower Extremity: Intact/Normal Balance - Sitting Balance Static Sitting Balance: Normal Dynamic Sitting Balance: Normal - Standing Balance Static Standing Balance: Good Dynamic Standing Balance: Fair - Comments Balance Assessment Comments: dyn gait index score 1424 which indicates risk of falls. gait speed: 0.84 meters/sec consistent with limited community ambulator Interventions - Exercise/Activities/Manual Therapy Exercises/Activities: pt performed isometric hip add, resisted hip abd in sup, L sidelying resisted hip abd, seated hip flex with green theraband x 10 reps, bridging x 5 reps Manual Therapy: NA HOME EXERCISE PROGRAM: pt given written HEP including hamstring stretch, isometric hip flex. Standing toe-ups, marching, hip abd, hip ext, and mini- squats with ball. - Charges Timed Code Treatment Minutes: 51 Total Treatment Time: 59 Procedures billed for this date of service:: eval med, ex EVALUATION COMPLEXITY LEVEL EVALUATION COMPLEXITY LEVEL: HISTORY: Medium (HTN, OA, pain), EXAM OF BODY SYSTEMS: Medium (balance, posture, strength, gait, ), CLINICAL PRESENTATION: Medium, CLINICAL DECISION MAKING: Medium Assessment Assessment: pt presents with decreased strength, balance as well as gait abnormality limiting functional mobility. Patient Education: Home Exercise Program, Education of Plan of Care Rehab Potential: Good Short Term Goals Goal #1: pt independent with initial HEP Goal to be met by: 12/09/18 Goal #2: pt with improved BLE strength 4 to 4+/5 Goal to be met by: 12/09/18 Goal #3: pt report decreased hip pain Goal to be met by: 12/09/18 Goal #4: pt with improved dyn stand balance as noted by dyn gait index Goal to be met by: 12/09/18 Half-Way Goals Goal #1: pt with improved gait speed 1.0 meter/sec consistent w community ambulator Goal to be met by: 12/23/18 Goal #2: pt amb with cane with no loss of balance functional distances Goal to be met by: 12/23/18 Goal #3: pt report increased ability to perform daily activity without pain Goal to be met by: 12/23/18 Goal #4: pt with improved dyn gait index score Goal to be met by: 12/23/18 Plan - Treatment to be Provided Procedures: Therapeutic Exercises, Therapeutic Activity, Gait Training, Patient Education Modalities: Cryotherapy, Hot Packs - Treatment Plan Frequency: 2 X week Duration: 4 weeks Dates of Active Directory Specialist Goals: 12/23/18 Expiration date of current Insurance Approval:: n/a - Treatment Code (1) Right hip pain Code(s): M25.551 - PAIN IN RIGHT HIP (2) Muscle weakness Code(s): M62.81 - MUSCLE WEAKNESS (GENERALIZED) (3) Gait abnormality Code(s): R26.9 - UNSPECIFIED ABNORMALITIES OF GAIT AND MOBILITY
--- NOTE | 2018-12-02 14:22 | RS.OPPTDN ---
Subjective Date of Note: 11/28/18 Visit #: 2 Number of visits approved by Insurance: na Date of Evaluation: 11/25/18 Payer Source: MEDICARE Treatment Diagnosis: pain in R hip Current Subjective/complaints:: Reports weakness at bilateral hips. States she is looking into getting a small base quad cane. *Precautions: n/a Interventions - Exercise/Activities/Manual Therapy Exercises/Activities: Mat exercises of SLR and hip abd with 1#, 2s/10reps each. Isometric hip add, isometric ankle inversion with hip IR. Resisted hip abd in hook-lying with red theraband. Also, resisted ankle df and hip abd, both with red theraband, 10reps each. Sidelying hip abd with assistance, 2s/5reps each. Seated hip flex. Standing hip abd, march, mini-squat, and toe-ups. Leg press and ankle pf/df, both with 15#, 25reps at slow pace. Gait training with SBQC and LBQC, cues for foot and cane placement and safety with turns. Total minutes of Exercise: EX 35mins, GT 12mins Manual Therapy: NA HOME EXERCISE PROGRAM: pt given written HEP including hamstring stretch, isometric hip flex. Standing toe-ups, marching, hip abd, hip ext, and mini- squats with ball. - Charges Timed Code Treatment Minutes: 47mins Total Treatment Time: 49mins Procedures billed for this date of service:: EX2, GT Assessment: Patient motivated to work on HEP and progress toward walking with cane. Patient Education: Body/Joint mechanics, Home Exercise Program, Home Safety, Activity Modification Comments: Discussion of HEP, safety with amb, and proper position with exercises. Patient demonstrates compliance with HEP?: Yes Short Term Goals Goal #1: pt independent with initial HEP Goal to be met by: 12/09/18 Progress towards Goal:: Progressing Goal #2: pt with improved BLE strength 4 to 4+/5 Goal to be met by: 12/09/18 Goal #3: pt report decreased hip pain Goal to be met by: 12/09/18 Goal #4: pt with improved dyn stand balance as noted by dyn gait index Goal to be met by: 12/09/18 Fur Repairer Goals Goal #1: pt with improved gait speed 1.0 meter/sec consistent w community ambulator Goal to be met by: 12/23/18 Goal #2: pt amb with cane with no loss of balance functional distances Goal to be met by: 12/23/18 Goal #3: pt report increased ability to perform daily activity without pain Goal to be met by: 12/23/18 Goal #4: pt with improved dyn gait index score Goal to be met by: 12/23/18 Plan Dates of Intermediate Goals: 12/23/18 Expiration date of current Insurance Approval:: 12/23/18 PLAN: Progress with strengthening to increase safety and independence with functional activities and ambulation.
--- NOTE | 2018-12-06 14:24 | RS.OPPTDN ---
Subjective Date of Note: 12/02/18 Visit #: 3 Number of visits approved by Insurance: NA Date of Evaluation: 11/25/18 Payer Source: MEDICARE Treatment Diagnosis: pain in R hip Current Subjective/complaints:: Patient reports soreness at the left inner thigh and in the right shoulder blade area. States she has new SBQC and states she knows she will need to practice more before she is safe with it. *Precautions: n/a Pain Assessment - Pain Description Pain Location: Left inner thigh Pain Description: soreness Current Pain Intensity: mild to mod Interventions - Exercise/Activities/Manual Therapy Exercises/Activities: SLR and hip abd with no weights, 2s/10reps each. Isometric hip add, isometric ankle inversion with hip IR. Resisted hip abd in hook-lying red theraband, 2s/10reps each. Ankle df red theraband, 2s/10reps each. [place] resisted hip abd due to left LE soreness. Sidelying clams 10reps each, and hip abd with assistance, 3s/5reps each. Standing hip abd, march, mini-squat, and toe-ups. Worked on gait training with SBQC, cues for placement of base and stride length and width. Cues to watch LE's crossing over midline with turns. Gait training with new SBQC before and after mat exercises. Cues for placement of base, stride width, and safety wtih turns. Total minutes of Exercise: EX 35mins, GT 12mins Manual Therapy: NA HOME EXERCISE PROGRAM: pt given written HEP including hamstring stretch, isometric hip flex. Standing toe-ups, marching, hip abd, hip ext, and mini- squats with ball. - Charges Timed Code Treatment Minutes: 47mins Total Treatment Time: 47mins Procedures billed for this date of service:: EX2, GT Assessment: Patient working on HEP and has purchased a SBQC to progress toward. Patient Education: Body/Joint mechanics, Home Exercise Program, Home Safety, Activity Modification Patient demonstrates compliance with HEP?: Yes Short Term Goals Goal #1: pt independent with initial HEP Goal to be met by: 12/09/18 Progress towards Goal:: Progressing Goal #2: pt with improved BLE strength 4 to 4+/5 Goal to be met by: 12/09/18 Goal #3: pt report decreased hip pain Goal to be met by: 12/09/18 Goal #4: pt with improved dyn stand balance as noted by dyn gait index Goal to be met by: 12/09/18 Rn Pool Goals Goal #1: pt with improved gait speed 1.0 meter/sec consistent w community ambulator Goal to be met by: 12/23/18 Goal #2: pt amb with cane with no loss of balance functional distances Goal to be met by: 12/23/18 Goal #3: pt report increased ability to perform daily activity without pain Goal to be met by: 12/23/18 Goal #4: pt with improved dyn gait index score Goal to be met by: 12/23/18 Plan Dates of Rn Pool Goals: 12/23/18 Expiration date of current Insurance Approval:: 12/23/18 PLAN: Progress with strengthening and gait training to increase functional gait with SBQC.
--- NOTE | 2018-12-06 15:01 | RS.OPPTDN ---
Subjective Date of Note: 12/06/18 Visit #: 4 Number of visits approved by Insurance: NA Date of Evaluation: 11/25/18 Payer Source: MEDICARE Treatment Diagnosis: pain in R hip Current Subjective/complaints:: Patient report soreness left inner tight has resolved. States she walked into hospital with SBQC today and is progressing away from rollator. *Precautions: n/a Interventions - Exercise/Activities/Manual Therapy Exercises/Activities: Added 1 1/2# to SLR and hip abd, 2s/10reps each. Isometric hip add, isometric ankle inversion with hip IR. Resisted hip abd in hook-lying increased to green theraband, 2s/10reps each. Ankle df green theraband, 2s/10reps each. Sidelying hip abd 10reps each. Sitting bilateral LAQ with ball between knees and hip abd with blue theraband. Standing hip abd and marching, and hip abd with 2#, 2s/10reps each. Mini-squat with ball between knees. Leg press 20#, 30reps. Side-stepping at handrail, 12' x8reps. Worked on gait training with SBQC, cues for placement of base and stride length and width. Total minutes of Exercise: 42mins Manual Therapy: NA HOME EXERCISE PROGRAM: pt given written HEP including hamstring stretch, isometric hip flex. Standing toe-ups, marching, hip abd, hip ext, and mini- squats with ball. - Charges Timed Code Treatment Minutes: 42mins Total Treatment Time: 42mins Procedures billed for this date of service:: EX3 Assessment: Progressing with strengthening and working toward walking with SBQC and discontinuing rollator. Patient Education: Home Exercise Program, Home Safety Patient demonstrates compliance with HEP?: Yes Short Term Goals Goal #1: pt independent with initial HEP Goal to be met by: 12/09/18 Progress towards Goal:: Met Goal #2: pt with improved BLE strength 4 to 4+/5 Goal to be met by: 12/09/18 Progress towards Goal:: Progressing Goal #3: pt report decreased hip pain Goal to be met by: 12/09/18 Progress towards Goal:: Progressing Goal #4: pt with improved dyn stand balance as noted by dyn gait index Goal to be met by: 12/09/18 Penitentiary Goals Goal #1: pt with improved gait speed 1.0 meter/sec consistent w community ambulator Goal to be met by: 12/23/18 Goal #2: pt amb with cane with no loss of balance functional distances Goal to be met by: 12/23/18 Progress towards goal: Progressing Goal #3: pt report increased ability to perform daily activity without pain Goal to be met by: 12/23/18 Goal #4: pt with improved dyn gait index score 21/24 Goal to be met by: 12/23/18 Plan Dates of Penitentiary Goals: 12/23/18 Expiration date of current Insurance Approval:: 12/23/18 PLAN: Progress with exercise and gait training, working toward increased functional activity level.
--- NOTE | 2018-12-08 14:49 | RS.OPPTDN ---
Subjective Date of Note: 12/08/18 Visit #: 5 Number of visits approved by Insurance: NA Date of Evaluation: 11/25/18 Payer Source: MEDICARE Treatment Diagnosis: pain in R hip Current Subjective/complaints:: Patient reports she is doing her HEP and hip abduction feels a little bit stronger. She reports she is using her rollator most of the time as she does not feel steady enough to consistently walk with SBQC. She has difficulty with some weight-bearing on the right LE. *Precautions: n/a Pain Assessment - Pain Description Pain Location: right hip Pain Description: Aching Current Pain Intensity: mild to mod with increased standing Interventions - Exercise/Activities/Manual Therapy Exercises/Activities: 1 1/2# to SLR 2s/10reps each. Isometric ankle inversion with hip IR. Resisted hip abd in hook-lying green theraband, 3s/10reps each. Ankle df green theraband, 2s/10reps each. Hip abd with LE extended, 10reps each. Sidelying hip abd 2s/10reps each. Clams with 4#, 10reps each. Sitting bilateral LAQ with ball between knees and isometrics with ball between her feet. Hip abd with green theraband. Hip IR and ER resisted with green theraband , 2s/10reps each. Standing hip abd with 2#, 3s/10reps each. hip ext 2#, 2s/ 10reps each. Side-step marching 2# each LE, 12' [id number]. Frequent cues with exercise for proper position and muscle engagement. Leg press 20#, 2s/15reps. Discussed safety with cane and patient will work on this at home. Total minutes of Exercise: 43mins Manual Therapy: NA HOME EXERCISE PROGRAM: pt given written HEP including hamstring stretch, isometric hip flex. Standing toe-ups, marching, hip abd, hip ext, and mini- squats with ball. - Charges Timed Code Treatment Minutes: 43mins Total Treatment Time: 48mins Procedures billed for this date of service:: EX3 Assessment: Focus of treatment is on strengthening bilateral hips, especially abduction. Patient is very motivated to work on exercise and progress. She is very attentive to all patient education/cueing. Patient Education: Body/Joint mechanics, Home Exercise Program Patient demonstrates compliance with HEP?: Yes Short Term Goals Goal #1: pt independent with initial HEP Goal to be met by: 12/09/18 Progress towards Goal:: Met Goal #2: pt with improved BLE strength 4 to 4+/5 Goal to be met by: 12/09/18 Progress towards Goal:: Progressing Goal #3: pt report decreased hip pain Goal to be met by: 12/09/18 Progress towards Goal:: Progressing Goal #4: pt with improved dyn stand balance as noted by dyn gait index Goal to be met by: 12/09/18 [facility]pc Goals Goal #1: pt with improved gait speed 1.0 meter/sec consistent w community ambulator Goal to be met by: 12/23/18 Goal #2: pt amb with cane with no loss of balance functional distances Goal to be met by: 12/23/18 Progress towards goal: Progressing Goal #3: pt report increased ability to perform daily activity without pain Goal to be met by: 12/23/18 Goal #4: pt with improved dyn gait index score Goal to be met by: 12/23/18 Plan Dates of [facility] Goals: 12/23/18 Expiration date of current Insurance Approval:: 12/23/18 PLAN: Progress strengthening reduce pain, improve balance, and increase safety with functional activities.
== END 2018-12-08 23:59 ==
PROVIDERS: ATTEND Orthopaedic Surgery Adult Reconstructive Orthopaedic Surgery
DX: M25.552 Pain in left hip (principal); M62.81 Muscle weakness (generalized); R26.9 Unspecified abnormalities of gait and mobility

== ENCOUNTER 2018-12-19 13:00 | Outpatient (RCR) ==
[2017-09-06 16:16] VITALS: BMI 25.9
--- NOTE | 2018-12-13 14:02 | RS.OPPTDN ---
Subjective Date of Note: 12/12/18 Visit #: 6 Number of visits approved by Insurance: NA Date of Evaluation: 11/25/18 Payer Source: MEDICARE Treatment Diagnosis: pain in R hip Current Subjective/complaints:: Patient reports she continues to have difficulty with balance, but feels she is slowly gaining hip strength. *Precautions: n/a Interventions - Exercise/Activities/Manual Therapy Exercises/Activities: Blue theraband resisted hip abduction and hip adduction in hook-lying, 1 1/2# to SLR 2s/10reps each. Red theraband resisted hip abd and hip add, with knees extended, 2s/10reps each. Isometric ankle inversion with hip IR. Ankle df green theraband, 2s/10reps each. Side-lying clams with 4#, 2s/ 10reps each. Side-lying hip abd with 1#, 2s/5reps each and then abduction no weight 10reps each. Standing hip abd increased to 3#, 3s/10reps each. hip ext 3#, 2s/10reps each. Side-step marching 3# each LE, 12' x8reps. Green theraband resisted side-stepping, 12' x4reps. Frequent cues with exercise for proper position and muscle engagement. Leg press increased to 23#, 2s/15reps. Standing at handrail to review proper alignment and muscle engagement for hip strengthening exercise in HEP. Discussed safety with cane and patient received CGA to walk in department with straight-cane. Ended with PIGMENT MAKING SUPERVISOR with side-stepping , verbal cue to correct posture. Total minutes of Exercise: EX 35mins, GT 9mins Manual Therapy: NA HOME EXERCISE PROGRAM: pt given written HEP including hamstring stretch, isometric hip flex. Standing toe-ups, marching, hip abd, hip ext, and mini- squats with ball. - Charges Timed Code Treatment Minutes: 44mins Total Treatment Time: 48mins Procedures billed for this date of service:: EX2, GT Assessment: Patient progressing well with strengthening exercise and gait training with cane. Patient Education: Home Exercise Program Patient demonstrates compliance with HEP?: Yes Short Term Goals Goal #1: pt independent with initial HEP Goal to be met by: 12/09/18 Progress towards Goal:: Met Goal #2: pt with improved BLE strength 4 to 4+/5 Goal to be met by: 12/09/18 Progress towards Goal:: Progressing Goal #3: pt report decreased hip pain Goal to be met by: 12/09/18 Progress towards Goal:: Progressing Goal #4: pt with improved dyn stand balance as noted by dyn gait index Goal to be met by: 12/09/18 Sustainability Coordinator Goals Goal #1: pt with improved gait speed 1.0 meter/sec consistent w community ambulator Goal to be met by: 12/23/18 Goal #2: pt amb with cane with no loss of balance functional distances Goal to be met by: 12/23/18 Progress towards goal: Progressing Goal #3: pt report increased ability to perform daily activity without pain Goal to be met by: 12/23/18 Goal #4: pt with improved dyn gait index score Goal to be met by: 12/23/18 Plan Dates of Sustainability Coordinator Goals: 12/23/18 Expiration date of current Insurance Approval:: 12/23/18 PLAN: Progress hip and LE strengthening to increase patients functional gait and activity level.
--- NOTE | 2018-12-16 16:49 | RS.OPPTDN ---
Subjective Date of Note: 12/15/18 Visit #: 7 Number of visits approved by Insurance: NA Date of Evaluation: 11/25/18 Payer Source: MEDICARE Treatment Diagnosis: pain in R hip Current Subjective/complaints:: Patient reports LE and hip strength seems to be improving. Reports mild discomfort at the lateral hips with increased strengthening. *Precautions: n/a Pain Assessment - Pain Description Pain Location: Bilateral lateral hip joints Pain Description: soreness Current Pain Intensity: mild Other Comments regarding Pain:: Pain increases in the right hip with unilateral standing for exercise. Interventions - Exercise/Activities/Manual Therapy Exercises/Activities: Blue theraband resisted hip abduction and hip adduction in hook-lying, 2# to SLR 2s/10reps each. Red theraband resisted hip abd and hip add, with knees extended, 2s/10reps each. Ankle df green theraband, 2s/10reps each. Side-lying clams with 4#, 2s/10reps each. Side-lying hip abd with 1#, 2s/ 5reps each and then abduction no weight 2s/10reps each. Sitting, red theraband resisted hip IR and hip ER, 2s/10reps each. Standing hip abd with 2 1/2#, 3s/ 10reps each. hip ext 2 1/2#, 2s/10reps each. Side-step and side-step marching 3 # each LE, 12' x8reps each. Green theraband resisted side-stepping, 12' x4reps. Stepper board for step-ups and lateal step-ups. Leg press increased to 25#, 2s/ 15reps. PUBLIC HEALTH TRAINING ASSISTANT for side-stepping with cues for foot placement and correct posture. Discussion of proper position and muscle engagement during exercise. Total minutes of Exercise: 47mins Manual Therapy: NA HOME EXERCISE PROGRAM: pt given written HEP including hamstring stretch, isometric hip flex. Standing toe-ups, marching, hip abd, hip ext, and mini- squats with ball. - Charges Timed Code Treatment Minutes: 47mins Total Treatment Time: 50mins Procedures billed for this date of service:: EX3 Assessment: Patient progressing with strengthening. Patient Education: Home Exercise Program Patient demonstrates compliance with HEP?: Yes Short Term Goals Goal #1: pt independent with initial HEP Goal to be met by: 12/09/18 Progress towards Goal:: Met Goal #2: pt with improved BLE strength 4 to 4+/5 Goal to be met by: 12/09/18 Progress towards Goal:: Progressing Goal #3: pt report decreased hip pain Goal to be met by: 12/09/18 Progress towards Goal:: Progressing Goal #4: pt with improved dyn stand balance as noted by dyn gait index Goal to be met by: 12/09/18 Prison Goals Goal #1: pt with improved gait speed 1.0 meter/sec consistent w community ambulator Goal to be met by: 12/23/18 Goal #2: pt amb with cane with no loss of balance functional distances Goal to be met by: 12/23/18 Progress towards goal: Progressing Goal #3: pt report increased ability to perform daily activity without pain Goal to be met by: 12/23/18 Goal #4: pt with improved dyn gait index score Goal to be met by: 12/23/18 Plan Dates of Prison Goals: 12/23/18 Expiration date of current Insurance Approval:: 12/23/18 PLAN: Progress with strengthening and gait training to increase safety and independence.
--- NOTE | 2018-12-19 15:42 | RS.OPPTDN ---
Subjective Date of Note: 12/19/18 Visit #: 8 Number of visits approved by Insurance: NA Date of Evaluation: 11/25/18 Payer Source: MEDICARE Treatment Diagnosis: pain in R hip Current Subjective/complaints:: Patient reports she feels her bilateral hip and LE strength has improved. *Precautions: n/a Pain Assessment - Pain Description Pain Location: Bilateral hips Current Pain Intensity: 0/10 Other Comments regarding Pain:: Reports only occasional discomfort at the left lateral hip joint with prolonged standing. Interventions - Exercise/Activities/Manual Therapy Exercises/Activities: Green theraband resisted hip abduction and hip adduction in hook-lying, 1 1/2# to SLR 2s/10reps each. 3# for alt hip flexion in hook- lying. Red theraband resisted hip abd and hip add, with knees extended, 2s/ 10reps each. Ankle df green theraband, 2s/10reps each. Side-lying clams with 4# , 2s/10reps each. Side-lying hip abd with 1#, 2s/10reps each and then abduction no weight 2s/10reps each. Sitting, red theraband resisted hip IR and hip ER, 2s/ 10reps each. Standing hip abd with 2 1/2#, 3s/10reps each. hip ext 2 1/2#, 2s/ 10reps each. Side-step and side-step marching 3# each LE, 12' x8reps each. Green theraband resisted hip abd, 2s/10reps each. Stepper board for step-ups and lateal step-ups, multiple reps. Leg press increased to 26#, 2s/15reps. Disscsussion for HEP and general safety with ambulation. Amb in hallway for Gait Speen test. Total minutes of Exercise: 49mins Manual Therapy: NA HOME EXERCISE PROGRAM: pt given written HEP including hamstring stretch, isometric hip flex. Standing toe-ups, marching, hip abd, hip ext, and mini- squats with ball. - Objective Findings Observations,measurements,etc.: Patient increased her LE Functional Scale to 46/ 80 or 42% deficit. She increased Gait Speed test to 0.9m/sec (0.84m/sec on Eval) , which is a slight improvement but puts he in the Community Ambulator category. She also increased Dynamic Gait Index to 16/24 (was 14/24 on Eval). - Charges Timed Code Treatment Minutes: 49mins Total Treatment Time: 52mins Procedures billed for this date of service:: EX3 Assessment: Patient demos improvement in all three special test categories and has met 5 or 8 treatment goals. She feels she has done well and is prepared for discharge with HEP. Patient Education: Body/Joint mechanics, Home Exercise Program, Home Safety, Activity Modification Patient demonstrates compliance with HEP?: Yes Short Term Goals Goal #1: pt independent with initial HEP Goal to be met by: 12/09/18 Progress towards Goal:: Met Goal #2: pt with improved BLE strength 4 to 4+/5 Goal to be met by: 12/09/18 Progress towards Goal:: Met Goal #3: pt report decreased hip pain Goal to be met by: 12/09/18 Progress towards Goal:: Met Goal #4: pt with improved dyn stand balance as noted by dyn gait index Goal to be met by: 12/09/18 Progress towards Goal:: Progressing Long-Term Goals Goal #1: pt with improved gait speed 1.0 meter/sec consistent w community ambulator Goal to be met by: 12/23/18 Progress towards goal: Partially Met (Increased to 0.9m/sec) Goal #2: pt amb with cane with no loss of balance functional distances Goal to be met by: 12/23/18 Progress towards goal: Met Comments: Demos amb with cane and no LOB, but still using RW in community for safety. Goal #3: pt report increased ability to perform daily activity without pain Goal to be met by: 12/23/18 Progress towards goal: Met Goal #4: pt with improved dyn gait index score Goal to be met by: 12/23/18 Progress towards goal: Progressing Plan Dates of Long-Term Goals: 12/23/18 Expiration date of current Insurance Approval:: 12/23/18 PLAN: Discharge with HEP.
--- NOTE | 2018-12-20 08:56 | RS.OPPTDC ---
Date of Discharge: 12/19/18 Date of Evaluation: 11/25/18 Number of Visits: 8 Treatment Diagnosis: pain in R hip Current Level of Function: B hip abd 4/5, B hip flex/ext and add 4+/5. I with HEP. Current Complaints/Gains: pt reports improvement in B hip and LE strength. She continues to practice with cane/SBQC but continues to use rolling walker in community for safety. Report amb in community and at home for ADL's without increased hip pain. Functional Outcome Measure LE Functional Scale: 46 Dynamic Gait: 16 Other: gait speed test 0.9 m/s improved from 0.84m/s on eval. - G Codes & Severity Modifier G Codes & Modifier: n/a Source of G Code score: n/a Observation - Observation Posture: Forward Head, Rounded Shoulders, Increased Thoracic Kyphosis Handedness: Right Gait - Gait Pattern Gait Comments: gait speed 0.9m/s consistent with community ambulator Interventions - Exercise/Activities/Manual Therapy Exercises/Activities: n/a Manual Therapy: NA HOME EXERCISE PROGRAM: pt given written HEP including hamstring stretch, isometric hip flex. Standing toe-ups, marching, hip abd, hip ext, and mini- squats with ball. - Charges Timed Code Treatment Minutes: n/a Total Treatment Time: n/a Procedures billed for this date of service:: n/a Assessment Assessment: pt has met STG 1, 2, 3 LTG 2, 3 pt progressing toward remaining goals. pt made progress with strength, balance. pt continues to with decreased dyn stand balance. 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
== END 2019-01-05 23:59 ==
PROVIDERS: ATTEND Orthopaedic Surgery Adult Reconstructive Orthopaedic Surgery
DX: M25.552 Pain in left hip (principal)

== ENCOUNTER 2019-01-11 12:58 | Outpatient (CLI) | payer OTHER ==
[2017-09-06 16:16] VITALS: BMI 25.9
--- NOTE | 2019-01-11 14:19 | DEXA ---
EXAM: Bone density HISTORY: Concern for osteoporosis with history of restless legs syndrome and family history of osteo porosis COMPARISON: DEXA at 10/10/2012 TECHNIQUE: Digital images of the hips were provided and calculation of bone density was obtained. FINDINGS: DEXA of the hips was performed and of good quality. Total bone marrow density of 1.005 grams per square centimeter. (Prior 0.964) T score is a 0.0 and Z-score of 2.4. IMPRESSION: Bone density of the hips are within normal limits. Overall bone density has improved. FRAX calculation tool demonstrates 10-year major osteoporotic fracture risk of 12.6% and hip fracture risk of 3.2%. T score greater than -1 is normal T score -1 to -2.5 is osteopenia T score less than - 2.5 is osteoporosis
--- NOTE | 2019-01-13 09:10 | MAMMO ---
EXAM: Digital screening mammogram with 3-D tomosynthesis and CAD HISTORY: Screening mammogram COMPARISON: Mammogram 01/06/2018 and 11/30/2016 FINDINGS: Bilateral CC and MLO views of the breasts were performed digitally and demonstrate with sc attered fibroglandular breast density. Benign bilateral vascular calcifications are present. There is a benign stable right lateral breast nodule/lymph node region. There is no abnormal nodule or delbert cification. There is no significant interval change. IMPRESSION: No new or suspicious nodule or calcification RECOMMENDATION: Annual screening mammogram BIRADS category II: Benign findings
== END 2019-01-11 12:59 | disposition home or self-care (01) ==
LOC: RAD 12:58
PROVIDERS: ATTEND Family Medicine
DX: Z12.31 Encounter for screening mammogram for malignant neoplasm of breast (principal); M81.0 Age-related osteoporosis without current pathological fracture